=== PATIENT | female | born 1965 | race Caucasian/White ===

== ENCOUNTER 2017-04-21 11:31 | Inpatient (IN) | payer BC ==
[~2017-04-21] VITALS: Ht 165.1 cm; Wt 86.6 kg
--- NOTE | ~2017-04-21 | O ---
[facility] [place] [address] OPERATIVE REPORT Name: MEGAN OLVERA Room #: 402-P [facility] IN M.R.#: [id number] Admission: 05/17/17 Attend Phys: Eduard Rowland MD Discharge: 05/19/17 Date of : 61 Report #: [id number] THIS REPORT FOR: //name// CC: [facility] physician/PCP Eduard Rowland DATE OF SERVICE: 05/17/2017 PREOPERATIVE DIAGNOSIS: Left knee osteoarthritis. POSTOPERATIVE DIAGNOSIS: Left knee osteoarthritis. PROCEDURE: Left total knee arthroplasty. SURGEON: Eduard Rowland MD. TANK COOPER: Vikki England PA-C. ANESTHESIA: LMA with an adductor canal block. INDICATIONS FOR TANK COOPER: Throughout the case extensive retraction and manipulation of the knee was required. This was afforded to me by my real estate executive assistant. IMPLANTS: Hughes [employer] Nephew size 5 Legion Oxinium posterior stabilized femur, size 3 tibia, size 11 polyethylene and size 32 patella. TOURNIQUET TIME: 54 minutes. ESTIMATED BLOOD LOSS: 50 mL. COMPLICATIONS: None. SPECIMENS: None. CONDITION UPON LEAVING THE OR: Stable. INDICATION FOR PROCEDURE: The patient is a 51-year-old female with left knee osteoarthritis. She had failed conservative treatment for this and after discussion with her, she elected for left total knee arthroplasty. DESCRIPTION OF PROCEDURE: Risks, benefits, alternatives, complications were discussed in detail with the patient including but not limited to risk of anesthesia, risk of damage to nerves, arteries, blood vessels; risk for infection, bleeding, risk for continued knee pain and need for reoperation. Informed consent was obtained from the patient. Left knee was appropriately marked in the preoperative holding area. IV Ancef was given for preoperative [address] [address] OPERATIVE REPORT Name: MEGAN OLVERA Room #: 402-P [facility] IN [facility].#: [id number] Admission: 05/17/17 Attend Phys: Eduard Rowland MD Discharge: 05/19/17 Date of : 61 Report #: [id number] antibiotics. She was brought to the operating room and placed in supine position on operating room table. LMA anesthesia was induced without complication. Tourniquet was placed on the left thigh. Left lower extremity was prepped and draped in normal sterile fashion. Timeout was performed properly identifying the patient and procedure as well as instrumentation. All in the operating room were in agreement. Left lower extremity was exsanguinated, tourniquet was inflated. Tourniquet time was 54 minutes. Standard midline approach to knee was made with 10 blade through the skin. Dissection was taken down sharply to the fascia and deep flaps were developed medially and laterally. A fresh 10 blade was used to make a medial parapatellar arthrotomy and the anterior horns of meniscus were removed sharply. The knee was inspected. There was tricompartmental osteoarthritic change. The patella was everted, knee was flexed. ACL and PCL were removed sharply. Drill was used to gain access to the canal of the femur and distal femoral cutting block was pinned in place. Distal femoral cut was made. The femur was sized, found to be a size 5. The size 5, 4-in-1 cutting block was placed. Anterior, posterior and chamfer cuts were made. After this, attention was turned to the tibia. This was subluxed anteriorly. Drill was used to gain access to the canal of the tibia and tibial resection guide was placed and pinned and based off the lateral plateau tibial resection was made and removed. Posterior osteophytes were removed from the femur. The remainder of the menisci were removed with Bovie cautery. Flexion and extension gaps were checked and found to have good balance in flexion and extension and on 11. Tibia was sized, found to be a size 3. A size 3 tibial trial was placed, size 5 femoral trial was placed and the box cut was made. Post was placed and a size 11 polyethylene trial was placed. Knee was taken through range of motion, found to be stable, found to have good balance in flexion and extension both medially and laterally. A 9 mm was taken off the posterior surface of the patella and a size 32 patellar button was placed. Knee was taken through range of motion, found to be stable, found to have good patellar tracking. Trial components were removed. Bony ends were thoroughly irrigated with normal saline. Final size 3 tibia, size 5 Legion Oxinium posterior stabilized femur and a size 32 patella were cemented in place using standard cementation techniques. While the cement cured, a periarticular injection consisting of morphine, ropivacaine, epinephrine and Toradol was placed around the knee joint. After the cement cured, tourniquet was deflated. Hemostasis was obtained with Bovie cautery. The knee was thoroughly irrigated. A final size 11 polyethylene was placed. A gram of vancomycin was placed deep in the knee joint. Fascia was closed with 0 Vicryl, skin was closed with 2-0 Vicryl, 3-0 Monocryl. Dermabond and JIMMY dressing was applied. The patient tolerated this procedure well and went to the recovery room under the care of Anesthesia postoperatively. <ELECTRONICALLY SIGNED> By: Eduard Rowland MD 05/20/17 0728 1429 1443 Eduard Rowland MD /nt
--- NOTE | ~2017-04-21 | EKG ---
[address] [address] ELECTROCARDIOGRAM REPORT Name: MEGAN OLVERA Room #: PRE [facility]#: [id number] Admission: Attend Phys: Eduard Rowland MD Discharge: Date of : 61 Report #: [id number] THIS REPORT FOR: //name// [facility] Test Date: 2017-04-30 Test Time: 13:06:50 Pat Name: MEGAN OLVERA Department: Room: Gender: F Registered Nurse Hh Case Manager: neli gonzales : 1965 Requested By: Eduard Rowland Order Number: [id number] MD: Brian Kang Measurements Intervals [place] Rate: 60 P: 48 UT: 147 QRS: 76 QRSD: 107 T: 7 QT: 426 QTc: 426 Interpretive Statements Sinus rhythm No significant abnormality Compared to ECG 04/01/2015 12:10:24 No significant change was found Electronically Signed On 05-02-2017 13:59:37 [employer]TER [employer]OCKSTITCH by Brian Kang [email or web address] <ELECTRONICALLY SIGNED> By: Brian Kang MD, [facility] 05/02/17 1359 130 130 Brian Kang MD, FACC /EPI
--- NOTE | ~2017-04-21 | H ---
[facility] [place] [address] HISTORY AND PHYSICAL Name: MEGAN OLVERA Room #: 402-P [facility] IN M.R.#: [id number] Admission: 05/17/17 Attend Phys: Eduard Rowland MD Discharge: 05/19/17 Date of : 61 Report #: [id number] THIS REPORT FOR: //name// CC: [facility] physician/PCP Eduard Rowland HISTORY OF PRESENT ILLNESS: Left knee pain secondary to osteoarthritis. She had failed conservative treatment for this and is interested in left total knee arthroplasty. PAST SURGICAL HISTORY: Significant for right total knee arthroplasty. CURRENT MEDICATIONS: Gordon, tramadol, Voltaren gel, PENNSAID, BACTRIM, MAGNESIUM, POTASSIUM. ALLERGIES: PENICILLIN. SOCIAL HISTORY: She does not smoke or drink or use illicit drugs. PHYSICAL EXAMINATION: GENERAL: Well-developed, well-nourished female in no acute distress. She is alert and oriented, pleasant, cooperative with exam. HEART: Shows a regular rate and rhythm. CHEST: Clear to auscultation bilaterally. ABDOMEN: Soft, nontender, nondistended. NEUROLOGIC: She is neurologically intact. EXTREMITIES: Left knee shows to have range of motion from 0-130 degrees. She is tender to palpation along the medial and lateral joint line. Ligamentous exam is stable. ASSESSMENT: Left knee osteoarthritis. PLAN: Diagnosis of arthritis has been discussed with the patient. She has failed conservative treatment including NSAIDs as well as injections. She is interested in proceeding with total knee arthroplasty. Risks, benefits, alternatives, complications were discussed with her. She is understanding and wished to proceed. We will plan aspirin for DVT prophylaxis and discharged to direct outpatient therapy. <ELECTRONICALLY SIGNED> By: Eduard Rowland MD 06/24/17 0735 1227 1352 Eduard Rowland MD /nt
[~2017-04-21 11:31] MED LIST: ALEVE220 MG PO; CALCIUM 500 +1 EACH PO; CENTRUM SILVER1 EAC4 PO; FLAX SEED OIL1000 MG PO; GLUCOSAMINE CH1 EAC2 PO; PERCOCET PO; POTASSIUM20 PO; RED YEAST RICE600 MG PO; TRAMADOL 50 MG50 MG PO; XARELTO10 MG PO
[2017-04-23] MEDS ORDERED: TRAMADOL 50 MG50 MG PO (09:14)
[2017-04-23] MEDS ORDERED: MAGOX 400400 MG PO (09:14)
[2017-04-23] MEDS ORDERED: KRILL OIL 1,001 EAC1 PO (09:15)
[2017-04-30 13:11] LABS: HEMATOCRIT 44.8 % (37.0-47.0); HEMOGLOBIN 15.5 gm/dL (12.0-15.0); MCH 29.5 pg (26.0-34.0); MCHC 34.6 g/dL (28.0-37.0); MCV 85.4 fL (80.0-100.0); RBC 5.24 mil/uL (4.20-5.00); RDW 13.6 % (10.5-14.5); WBC 12.5 thou/uL (4.0-11.0)
[2017-04-30 13:13] LABS: URINE BILIRUBIN 1+ (Negative); URINE BLOOD TRACE (Negative); URINE CLARITY CLEAR; URINE COLOR YELLOW; URINE GLUCOSE-RANDOM* NEGATIVE (Negative); URINE KETONES 1+ (Negative); URINE LEUKOCYTES-REFLEX NEGATIVE (Negative); URINE NITRITE-REFLEX NEGATIVE (Negative); URINE PROTEIN (DIPSTICK) 1+ (Negative); URINE SPECIFIC GRAVITY 1.025 (1.005-1.035); URINE UROBILINOGEN 0.2 E.U./dl (0.2-1.0)
[2017-04-30 13:18] LABS: ICTOTEST (BILI CONFIRMATORY) Negative (Negative)
[2017-04-30 13:19] LABS: MUCUS 0-3 Light strn/LPF (None Seen); SQUAMOUS 0-3 Few /LPF (0-3)
[2017-04-30 13:20] LABS: CASTS None Seen /LPF (None Seen); CRYSTALS None Seen /LPF (None Seen); URINE RBC 0-2 Rare /HPF (0-2); URINE WBC-REFLEX 0-5 Rare /HPF (0-5)
[2017-04-30 13:26] LABS: ALBUMIN 4.1 g/dL (3.4-5.0); CALCIUM 9.4 mg/dL (8.5-10.1); CREATININE 1.2 mg/dL (0.6-1.0); POTASSIUM 3.5 mmol/L (3.5-5.1)
[2017-05-17] VITALS (9 sets, daily range): BP systolic 99–143; BP diastolic 50–72
[2017-05-18 03:20] VITALS: BP 115/65
[2017-05-18 04:35] LABS: HEMATOCRIT 34.9 % (37.0-47.0); HEMOGLOBIN 11.8 gm/dL (12.0-15.0); MCH 29.5 pg (26.0-34.0); MCHC 33.8 g/dL (28.0-37.0); MCV 87.4 fL (80.0-100.0); RDW 13.7 % (10.5-14.5)
[2017-05-18 07:48] VITALS: BP 103/56
[2017-05-18 16:52] VITALS: BP 114/59
[2017-05-18 20:00] VITALS: BP 111/65
[2017-05-19 04:00] VITALS: BP 140/61
[2017-05-19 04:49] LABS: HEMATOCRIT 34.9 % (37.0-47.0); HEMOGLOBIN 11.8 gm/dL (12.0-15.0); MCH 29.9 pg (26.0-34.0); RBC 3.96 mil/uL (4.20-5.00); RDW 13.8 % (10.5-14.5); WBC 10.7 thou/uL (4.0-11.0)
[2017-05-19 09:27] VITALS: BP 124/62
[2017-05-19] MEDS ORDERED: MS CONTIN15 MG PO (15:29)
[2017-05-19] MEDS ORDERED: PERCOCET PO (15:29)
[2017-05-19] MEDS ORDERED: NEURONTIN 300300 M1 PO (15:29)
[2017-05-19] MEDS ORDERED: TRI-BUFFERED A325 M1 PO (15:29)
[2017-05-19] MEDS ORDERED: ONDANSETRON HCL4 M1 PO (15:30)
[2017-05-19 15:52] VITALS: BP 124/62
== END 2017-05-19 16:12 | disposition home or self-care (01) | DRG 470 ==
LOC: PRE 11:31 → TBA 05-17 05:21 → PRE 05-17 08:02 → 4N 05-17 17:55
PROVIDERS: Orthopaedic Surgery
PROC: 0SRD069 Replacement of Left Knee Joint with Oxidized Zirconium on Polyethylene Synthetic Substitute, Cemented, Open Approach (ICD-10-PCS; principal; 2017-05-17)
PROC: 3E0R3BZ Introduction of Anesthetic Agent into Spinal Canal, Percutaneous Approach (ICD-10-PCS; principal; 2017-05-17)
DX: M17.12 Unilateral primary osteoarthritis, left knee (principal); Z88.0 Allergy status to penicillin; Z96.651 Presence of right artificial knee joint
CPT/HCPCS: 10790; 50010; 50101; 50415; 50954; 51130; 51225; 51771; 53000; 53078; 53365; 54118; 56527; 56528; 57095; 62110; 62900; 64042; 70005